=== PATIENT | female | born 1990 | race Caucasian/White ===

== ENCOUNTER 2016-10-02 17:58 | Emergency (ER) | payer OTHER ==
[2016-10-02 18:25] VITALS: BP 104/65
--- NOTE | 2016-10-02 19:25 | ED ---
Medical Screening - HPI Summary HPI Summary: 26 f arrives with security for legal blood draw before incarceration. no complaints at this time. - History of Current Complaint Chief Complaint: EDGeneral Stated Complaint: LEGAL BLOOD DRAW Time Seen by Provider: 10/02/16 19:21 Associated Signs and Symptoms: Negative PMH/Surg Hx/FS Hx/Imm Hx Endocrine/Hematology History: Denies: Hx Anemia Cardiovascular History: Denies: Hx Hypertension Respiratory History: Denies: Hx Asthma Psychiatric History: Reports: Hx Anxiety - Surgical History Surgery Procedure, Year, and Place: , TRACHEOSTOMY Infectious Disease History: No Infectious Disease History: Denies: Traveled Outside the [place] in Last 30 Days - Family History Known Family History: Positive: None - Social History Alcohol Use: Rare Substance Use Type: Reports: None Smoking Status (MU): Current Every Day Smoker Type: Cigarettes Amount Used/How Often: 5 CIG/DAY Review of Systems Constitutional: Negative Eyes: Negative ENT: Negative Cardiovascular: Negative Respiratory: Negative Gastrointestinal: Negative Genitourinary: Negative Musculoskeletal: Negative Skin: Negative Neurological: Negative Psychological: Normal All Other Systems Reviewed And Are Negative: Yes Physical Exam Triage Information Reviewed: Yes Vital Signs On Initial Exam: Initial Vitals Temp Pulse Resp BP Pulse Ox 98.4 F 73 18 104/65 100 10/02/16 18:22 10/02/16 18:22 10/02/16 18:22 10/02/16 18:22 10/02/16 18:22 Vital Signs Reviewed: Yes Appearance: Positive: Well-Appearing, No Pain Distress, Well-Nourished Skin: Positive: Warm, Skin Color Reflects Adequate Perfusion, Dry Head/Face: Positive: Normal Head/Face Inspection Respiratory/Lung Sounds: Positive: Clear to Auscultation, Breath Sounds Present Cardiovascular: Positive: Normal, RRR, Pulses are Symmetrical in both Upper and Lower Extremities Diagnostics - Vital Signs Vital Signs Temp Pulse Resp BP Pulse Ox 10/02/16 18:22 98.4 F 73 18 104/65 100 - Laboratory Lab Statement: Any lab studies that have been ordered have been reviewed, and results considered in the medical decision making process. Course/Dx - Course Course Of Treatment: legal blood draw, no complaints at this time - Diagnoses Provider Diagnoses: Encounter for medical screening examination Discharge - Discharge Plan Condition: Stable Disposition: HOME Referrals: [facility] [Outside] Additional Instructions: If you develop pain in the area of blood draw or signs of infection such as redness, swelling or discharge seek medical attention.
== END 2016-10-02 20:35 | disposition home or self-care (01) ==
LOC: ED 17:58
DX: Z04.9 Encounter for examination and observation for unspecified reason (principal); F17.210 Nicotine dependence, cigarettes, uncomplicated
CPT/HCPCS: 99281

== ENCOUNTER 2019-08-28 16:02 | Day surgery (SDC) | payer OTHER ==
[~2019-08-28 16:02] MED LIST: Buffered Lidocaine 1% SYRIN* 1 ML/SYRINGE INTRADERM ONE; Lactated Ringers 1000 ML Bag* 1,000 ML IV SCH; Lidocaine 1% INJ* 10 MG/ML 30 ML SDV ONE
[2019-08-28] MEDS ORDERED: DOXYcycline IV* 100 MG in NS 0.9% 250 ML* 250 ML IVPB ONE (17:00)
[2019-08-28] MEDS ORDERED: Propofol* 10 MG/ML 20 ML BTL ONE (17:05)
[2019-08-28] MEDS ORDERED: Rocuronium* 10 MG/ML VIAL ONE (17:05)
[2019-08-28] MEDS ORDERED: HYDROmorphone INJ1* 1 MG/ML SYRINGE ONE ×2 (17:05→17:46)
[2019-08-28] MEDS ORDERED: OXYTOCIN* 10 UNITS/ML 1 ML VIAL ONE (17:21)
[2019-08-28] MEDS ORDERED: Dexamethasone IV* 4 MG/ML 1 ML (4 MG) ONE (17:23)
[2019-08-28] MEDS ORDERED: Ondansetron INJ* 2 MG/ML VIAL ONE (17:23)
[2019-08-28] MEDS ORDERED: Sugammadex * 200 MG/2 ML VIAL IV PUSH ONE (17:27)
[2019-08-28] MEDS ORDERED: Ondansetron INJ* 2 MG/ML VIAL IV PRN (17:40)
[2019-08-28] MEDS ORDERED: Naloxone* 0.4 MG/ML 1 ML VIAL IV PRN (17:40)
[2019-08-28] MEDS: HYDROmorphone INJ1* 1 MG/ML SYRINGE IV PRN ×5 (17:49→18:58)
--- NOTE | 2019-08-29 01:31 | OP ---
DATE OF OPERATION: 08/28/19 - [facility] DATE OF : 86 SURGEON: Tu Brar MD [employer] TUTOR: None. ANESTHESIA: General endotracheal tube. PRE-OP DIAGNOSIS: Incomplete . POST-OP DIAGNOSIS: Incomplete . OPERATIVE PROCEDURE: Dilatation and curettage. ESTIMATED BLOOD LOSS: 150 cc. SPECIMEN: Includes products of conception. FINDINGS: Include a soft 8-week sized uterus and a small amount of tissue. DESCRIPTION OF PROCEDURE: The patient identified, procedure identified as D and C. The patient was taken to the operating room, prepped and draped in the usual fashion in the dorsal lithotomy position under general anesthesia. Two single- tooth tenaculums were placed on the anterior lip of the cervix. Cervix was easily dilated up to #29 Allen dilator. The sharp serrated curette was inserted and sharp curettage performed. The suction curette was inserted and suction curettage was performed with little tissue obtained. There was some brisk bleeding and the anesthesiologist asked to turn off the flourane anesthesia. With this the uterus contracted down and bleeding became more reasonable and sharp curettage again was performed and no further tissue was obtained. A gritty sensation was felt throughout the circumference of the uterus. All instruments were removed from the vagina. Good hemostasis was verified in the tenaculum sites and the patient returned to recovery room in stable condition. All sponge and instrument counts were correct. [id number] #: [id number] [facility]
[2019-08-29 12:25] VITALS: BP 118/62
== END 2019-08-28 19:45 | disposition home or self-care (01) ==
LOC: OR 16:02
PROVIDERS: ATTEND Obstetrics & Gynecology
DX: O03.39 Incomplete spontaneous abortion with other complications (principal)
CPT/HCPCS: 88305; J1100; J1170; J2405; J2590; J2704

== ENCOUNTER 2022-03-14 17:55 | Inpatient (IN) ==
[2022-03-14] MEDS ORDERED: Buffered Lidocaine 1% SYRIN 1 ml INTRADERM ONE (18:10)
[2022-03-14] MEDS ORDERED: Lactated Ringers 1000 ml BAG 1,000 ML IV ONE ×2 (18:10→19:21)
[2022-03-14] MEDS ORDERED: ceFAZolin 2 GM in NS PREMIX 2 GM/100 ML BAG IVPB ONE (18:23)
[2022-03-14] MEDS ORDERED: OBEPIDURAL (200 ML) 200 ML EPIDURAL ONE (18:27)
[2022-03-14] MEDS ORDERED: Lidocaine 1% w EPI 1:200,000 SDV 30 ML VIAL ONE (18:28)
[2022-03-14] MEDS ORDERED: Lactated Ringers 1000 ml BAG 1,000 ML IV SCH ×2 (19:00→20:00)
[2022-03-14] MEDS ORDERED: Lactated Ringers 1000 ml BAG 500 ML IV PRN ×2 (19:21)
[2022-03-14] MEDS ORDERED: Sodium Citrate/Citric Acid LIQ 15 ML UDC PO PRN (19:21)
[2022-03-14] MEDS ORDERED: Phenylephrine 40 mcg/mL 10mL (400mcg) SYRINGE IV PUSH PRN ×2 (19:21)
[2022-03-14] MEDS ORDERED: OBEPIDURAL (200 ML) 200 ML EPIDURAL SCH (20:00)
[2022-03-14 20:13] LABS: Hepatitis B Surface Antigen Nonreactive (Nonreactive)
[2022-03-14 20:31] LABS: Hepatitis C Antibody Negative (Negative)
[2022-03-14] MEDS ORDERED: Buprenorp/Nalox 8-2 MG FILM SL FILM ONE (20:44)
[2022-03-14 20:51] LABS: Urine Benzodiazepine Screen None Detected (None Detect); Urine Cannabinoids Screen None Detected (None Detect); Urine Opiates Screen None Detected (None Detect)
[2022-03-14 20:59] LABS: Urine Appearance Clear; Urine Blood 1+ (Small) (Negative); Urine Color Yellow; Urine Ketones 1+ (15mg/dL) (Negative); Urine Nitrite Negative (Negative); Urine Protein 1+ (30 mg/dL) (Negative); Urine Urobilinogen 0.2 (Negative) (Negative)
[2022-03-14 21:00] LABS: Urine Bilirubin Negative (Negative); Urine Glucose Negative (Negative)
[2022-03-14] MEDS ORDERED: Oxytocin in LR 20 UNITS/1,000 ML BAG IVPB SCH (21:00)
[2022-03-14 21:02] LABS: Urine Bacteria Absent (Absent); Urine Red Blood Cell 1+(3-5/hpf) (Absent); Urine Squamous Epithelial Cell Present (Absent); Urine White Blood Cell Absent (Absent)
[2022-03-14 21:29] LABS: HIV 4th Generation Nonreactive (Nonreactive)
[2022-03-15] MEDS ORDERED: ceFAZolin VIAL VIAL ONE (04:30)
[2022-03-15] MEDS ORDERED: ceFAZolin 1 GM ADVAN 1 GM in NS 0.9% 50 ML 50 ML IVPB ONE (05:16)
[2022-03-15] MEDS ORDERED: Dibucaine 1% OINT 28.35 GM TUBE PR PRN (05:33)
[2022-03-15] MEDS ORDERED: Glycerin ADULT 2.4 gm SUPP PR PRN (05:33)
[2022-03-15] MEDS ORDERED: Witch Hazel PAD JAR TOPICAL PRN (05:33)
[2022-03-15] MEDS ORDERED: Oxytocin in LR 20 UNITS/1,000 ML BAG IVPB SCH (06:00)
[2022-03-15] MEDS ORDERED: Lactated Ringers 1000 ml BAG 1,000 ML IV SCH (06:00)
[2022-03-15] MEDS ORDERED: Buprenorp/Nalox 8-2 MG FILM SL FILM PRN (08:45)
[2022-03-15] MEDS: Nicotine PATCH 7 MG/24 HR PATCH TRANSDERM SCH (10:08)
[2022-03-16 06:22] LABS: ABS Basophils 0.1 10^3/ul (0-0.2); ABS Eosinophils 0.1 10^3/ul (0-0.6); ABS Monocytes 0.4 10^3/ul (0-0.8); ABS Neutrophils 4.7 10^3/ul (1.5-7.7); Eosinophil % 1.6 %; Hematocrit 25 % (35-47); Hemoglobin 8.6 g/dL (12.0-16.0); Mean Corpuscular HGB Conc 34 g/dL (31-36); Mean Corpuscular Hemoglobin 27 pg (27-31); Mean Corpuscular Volume 80 fL (80-97); Mean Platelet Volume 8.3 fL (7.4-10.4); Nucleated Red Blood Cells % 0.1; Platelet Count 158 10^3/uL (150-450); Red Blood Count 3.14 10^6 /uL (3.70-4.87); Red Cell Distribution Width 14 % (10-15); White Blood Count 7.3 10^3/uL (3.5-10.8)
[2022-03-16] MEDS: Nicotine PATCH 7 MG/24 HR PATCH TRANSDERM SCH (10:50)
[2022-03-16] MEDS: Buprenorp/Nalox 8-2 MG FILM SL FILM SCH (10:52)
[2022-03-17] MEDS ORDERED: medroxyPROGESTERone ACETATE 150 MG/ML VIAL IM ONE (10:50)
[2022-03-17] MEDS: Nicotine PATCH 7 MG/24 HR PATCH TRANSDERM SCH (11:06)
[2022-03-17] MEDS: Buprenorp/Nalox 8-2 MG FILM SL FILM SCH (12:48)
[2022-03-17 22:13] VITALS: BP 143/80
== END 2022-03-17 22:10 | disposition home or self-care (01) | DRG 560 ==
LOC: MCHOBOUT 17:55 → MCHOB 18:05
PROVIDERS: ADMIT Obstetrics & Gynecology; ATTEND Obstetrics & Gynecology